=== PATIENT | female | born 1980 | race Caucasian/White ===

== ENCOUNTER 2022-06-20 08:23 | Day surgery (SDC) | payer BC ==
[2022-06-19 09:41] VITALS: BMI 27.8
[2022-06-19 10:42] LABS: Hemoglobin 11.9 g/dL (12.0-15.5); Mean Corpuscular HGB CONC 34.4 g/dL (32.0-36.0); Mean Corpuscular Hemoglobin 30.3 pg (27.0-33.0); Mean Platelet Volume 9.2 fl (7.4-10.4); Platelet Count 269 10x3/uL (150-450); RBC Distribution Width 12.2 % (11.5-14.5); Red Blood Cell (RBC) Count 3.93 10x6/uL (3.90-5.03); White Blood Cell (WBC) Count 5.7 10x3/uL (3.5-10.5)
[2022-06-19 11:04] LABS: BHCG - Serum Negative (NEGATIVE); Pregs Control Background? CLEAR/WHITE (CLR/WHITE); Pregs Control Bar Appear? YES (CONTROL BAR)
[2022-06-20] MEDS ORDERED: Famotidine/PF 20 mg/2ml Vial ONE (08:46)
[2022-06-20] MEDS ORDERED: CeleCOXIB 100 MG CAP ONE (08:46)
[2022-06-20] MEDS ORDERED: Gabapentin 300 MG CAP ONE (08:46)
[2022-06-20] MEDS ORDERED: Bupivacaine PF 0.5% 30 ML VIAL ONE (09:49)
[2022-06-20] MEDS ORDERED: Midazolam HCl 2 mg/2 ml Vial ONE (10:02)
[2022-06-20] MEDS ORDERED: Scopolamine 1.5 mg/72 hour Patch ONE (10:03)
[2022-06-20] MEDS ORDERED: Fentanyl 100 MCG/2 ML VIAL ONE ×2 (10:09→12:19)
[2022-06-20] MEDS ORDERED: PROPOFOL 20 ML ONE (10:09)
[2022-06-20] MEDS ORDERED: Lidocaine 1% PF 5 ML VIAL ONE (10:09)
[2022-06-20] MEDS ORDERED: Ondansetron PF 4 MG/2 ML Vial ONE (10:10)
[2022-06-20] MEDS ORDERED: Rocuronium Bromide 10 MG/ML (10ML VIAL) ONE (10:10)
[2022-06-20] MEDS ORDERED: Dexamethasone 4 mg/ml Vial ONE (10:10)
[2022-06-20] MEDS ORDERED: CEFAZOLIN 2 GM VIAL ONE (10:19)
[2022-06-20] MEDS ORDERED: Clindamycin/D5W 900 mg/50 ml Premix Bag ONE (10:37)
[2022-06-20] MEDS ORDERED: Levofloxacin 500 mg/D5W 100 ml Premix Bag ONE (10:37)
[2022-06-20] MEDS ORDERED: ePHEDrine Sulfate 50 MG/10 ML VIAL ONE (11:32)
[2022-06-20] MEDS ORDERED: Glycopyrrolate 0.2 MG/ML 5 ML SYRINGE ONE (11:54)
[2022-06-20] MEDS ORDERED: HYDROcodone/Acetaminophen 5/325 mg Tablet ONE (14:07)
== END 2022-06-20 14:50 | disposition home or self-care (01) ==
LOC: CSHSDC 08:23
PROVIDERS: ATTEND Student in an Organized Health Care Education/Training Program
PROC: 0UT94ZZ Resection of Uterus, Percutaneous Endoscopic Approach (ICD-10-PCS; principal; 2022-06-20)
PROC: 0UT74ZZ Resection of Bilateral Fallopian Tubes, Percutaneous Endoscopic Approach (ICD-10-PCS; principal; 2022-06-20)
DX: N80.03 Adenomyosis of the uterus (principal); N83.8 Other noninflammatory disorders of ovary, fallopian tube and broad ligament; G89.18 Other acute postprocedural pain; N93.9 Abnormal uterine and vaginal bleeding, unspecified; F17.290 Nicotine dependence, other tobacco product, uncomplicated; Z88.0 Allergy status to penicillin; Z88.2 Allergy status to sulfonamides
CPT/HCPCS: 36415; 84703; 85027; 86850; 86900; 86901; 88307; J1100; J1956; J2250; J2405; J2704; J3010; J3490; S0020; S0028